=== PATIENT | female | born 1985 | race Caucasian/White ===

== ENCOUNTER 2017-07-30 12:15 | Emergency (ER) | payer OTHER ==
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
[2017-07-30 13:50] VITALS: BP 104/58; PULSE 54; TEMP 98.7; BMI 23.9
[2017-07-30] MEDS ORDERED: IBUPROFEN 600 MG TABLET (FP) PO ONE ×2 (15:12→15:25)
[2017-07-30] MEDS ORDERED: METHOCARBAMOL 500 MG TABLET PO ONE (15:42)
[2017-07-30] MEDS ORDERED: METHOCARBAMOL 500 MG TABLET ONE (15:50)
== END 2017-07-30 15:59 | disposition home or self-care (01) ==
LOC: FER 12:15
DX: S13.4XXA Sprain of ligaments of cervical spine, initial encounter (principal); W22.09XA Striking against other stationary object, initial encounter; Y93.89 Activity, other specified; Y92.9 Unspecified place or not applicable
CPT/HCPCS: 72050-TC-FY; 84703; 99282-25